=== PATIENT | male | born 1960 | race Caucasian/White ===

== ENCOUNTER 2022-12-11 13:17 | Outpatient (CLI) | payer OTHER, SELFPAY | END 2022-12-11 13:18 | disposition home or self-care (01) | PROVIDERS: PCP Internal Medicine; Visit Provider Internal Medicine | DX: E55.9 Vitamin D deficiency, unspecified (principal); Z13.6 Encounter for screening for cardiovascular disorders; Z12.5 Encounter for screening for malignant neoplasm of prostate | CPT/HCPCS: 80053; 80061; 84153 ==

== ENCOUNTER 2024-02-19 08:47 | Outpatient (CLI) | payer OTHER, SELFPAY | END 2024-02-19 08:48 | disposition home or self-care (01) | PROVIDERS: PCP Internal Medicine; Visit Provider Internal Medicine | DX: Z00.00 Encounter for general adult medical examination without abnormal findings (principal); Z12.5 Encounter for screening for malignant neoplasm of prostate | CPT/HCPCS: G0103 ==

== ENCOUNTER 2024-05-18 07:45 | Outpatient (CLI) | payer OTHER, SELFPAY ==
--- OUTSIDE RECORDS SUMMARY | 2024-05-18 07:47 | XMS_ITS | Clinical Summary ---
Author Organization [email or web address] [facility] Address [place], [place] [address] Care Team Providers Care In Process Inspector Name Role Phone Luca Macias MD Primary Care Provider Allergies No known active allergies Medications Medication Sig Dispensed Refills Start Date End Date Status valACYclovir (VALTREX) 1 gram tabletIndications:Her pes simplex labialis Take 1 tablet by mouth 2 times daily. 1 tablet 08/09/2016 Active amoxicillin-clavulana te (AUGMENTIN) 875-125 mg tabletIndications:Div erticulitis Take 1 Tablet by mouth two times daily with meals. 14 Tablet 02/01/2024 Active Active Problems Problem Noted Date Diagnosed Date Rib fractures Herpes simplex labialis Immunizations Name Administration Dates Next Due AMB Influenza, IIV4 PF (=>6 mos Flulaval,Fluzone Fluarix)(Flu Clinic Only) 04/28/2014 Influenza A (H1N1), Inactiva dorys (Age >=3 Years) 07/13/2009 Influenza, IIV3 (Age >=3 years) 04/22/2013,04/29,09/10/2010 Tdap 12/10/2009 Family History Medical History Relation Name Comments Cancer-prostate Brother 2 Arthritis Father Hypertension Mother Relation Name Status Comments Brother 1 Alive X2 Brother 2 Father Alive Maternal Grandfather Maternal Grandmother Mother Alive Paternal Grandfather Paternal Grandmother Sister Alive x2 Social History Tobacco Use Types Packs/Day Years Used Date Smoking Tobacco: Never Smokeless Tobacco: Never Alcohol Use Standard Drinks/Week Comments No 0 (1 standard drink = 0.6 oz pur e alcohol) Sex and Gender Information Value Date Recorded Sex Assigned at Not on file Gender Identity Not on file Sexual Orientation Not on file Obstetrics History Last Filed Vital Signs Vital Sign Reading Time Taken Comments Blood Pressure 118/70 01/31/2024 3:39 PM CDT Pulse 68 01/31/2024 3:39 PM CDT Temperature 36.4 ??C (97.5 ??F) 01/31/2024 3:39 PM CD T Respiratory Rate 18 01/31/2024 3:39 PM CDT Oxygen Saturation 97% 01/31/2024 3:39 PM CDT Inhaled Oxygen Concentration - - Weight 76.2 kg (167 lb 14.4 oz) 01/31/2024 3:39 PM CDT Height 177.8 cm (5' 10) 01/28/2017 3:23 PM CDT Body Mass Index 24.09 01/28/2017 3:23 PM CDT Plan of Treatment Health Maintenance Due Date Last Done Comments HIV for age 15-65 1975 Zoster (shingles) series for age 50+ (1 of 2) 2010 Depression screening for age 12+ 08/09/2017 08/09/2016 BMI (ht and wt on same day) for age 18+ 01/28/2018 01/28/2017, 08/09/2016 Colonoscopy through age 75 06/07/201906/07, 06/07/2014, 02/15/2011, Additional history exists Tetanus booster 12/11/2019 12/10/2009 Lipids for age 45-75 08/09/2021 08/09/2016, 03/30/2015, 01/18/2014, Additional history exists COVID-19 vaccine series ( season) 2024 04/04/2023, 04/17/2022, 11/21/2021, Additional history exists Influenza for age 50-64 03/01/2024 03/15/20 15 (Completed outside of [facility]), 04/28/2014, 04/22/2013, Additional history exists Tdap Completed 12/10/2009 Hepatitis C screening for age 18-79 Completed 01/18/2014 Pneumococcal series for age 6-64 Aged Out No longer eligible based on patient's age to complete this topic Procedures Procedure Name Priority Date/Time Associated Diagnosis Comments LIPID PANEL W REFLEX MEASURED LDL Routine 08/09/2016 9:43 AM COGNOS BI DEVELOPER Well adult exam COLONOSCOPY SCREENING Routine 06/07/2014 Screen for colon cancer Personal history of colonic polyps ANTI HCV Routine 01/18/2014 10:03 AM CDT Need for hepatitis C screening test from Last 3 Months or Most Recently Relevant to Health Maintenance Results * (ABNORMAL) LIPID PANEL W REFLEX MEASURED LDL (08/09/2016 9:43 AM COGNOS BI DEVELOPER) CHOLESTEROL,TOTAL 162 100 - 199 mg/dL 08/09/2016 12:19 PM COGNOS BI DEVELOPER [facility] TRIGLYCERIDES 100 <150 mg/dL 08/09/2016 12:19 PM COGNOS BI DEVELOPER [facility] HDL CHOLESTEROL 40(L) >40 mg/dL 7 12:19 PM COGNOS BI DEVELOPER [facility] NON-HDL CHOLESTEROL 122 <145 mg/dl 08/09/2016 12:19 PM COGNOS BI DEVELOPER [facility] CHOL/HDL RATIO 4.05 <4.50 08/09/2016 12:19 PM COGNOS BI DEVELOPER [facility] LDL CHOLESTEROL 102 <=130 mg/dL 08/09/2016 12:19 PM COGNOS BI DEVELOPER [facility] PATIENT STATUS FASTING 08/09/2016 12:19 PM COGNOS BI DEVELOPER [facility] Blood BLOOD SPECIMEN / Unknown Venipuncture / Unknown 08/09/2016 9:43 AM COGNOS BI DEVELOPER 08/09/2016 9:43 AM [employer] BI DEVELOPER Luca Macias MD CHEMISTRY Performing Organization Address City/[facility]/ZIP Co de Phone Number [facility] [address] [place] [address], * COLONOSCOPY SCREENING (06/07/2014) Luca Macias MD GI PROCEDURE OR D * ANTI HCV [00265.2] (01/18/2014 10:03 AM CDT) HEPATITIS C ANTIBODY Non-Reacti ve Non-Reacti ve 01/18/2014 4:22 PM CDT [facility] Blood specimen (specimen) BLOOD SPECIMEN / Unknown Venipuncture / Unknown 01/18/2014 10:03 AM CDT 01/18/2014 10:03 AM CDT Narrative [facility] - 01/18/2014 4:22 PM CDT Antibodies to HCV not detected; does not exclude the possibility of exposure to HCV. Luca Macias MD SEND OUTS [facility] [address] [place] [address], from Last 3 Months or Most Recently Relevant to Health Maintenance Care Teams In Process Inspector Relationship Specialty Start Date End Date Luca Macias MD [address] [place] [address] PCP - General Family Practice 12/07/22
--- NOTE | 2024-05-18 08:43 | W.ANESCHARGE ---
Anesthesia Charges Start Date/Time Anesthesia Start Date: 05/18/24 Anesthesia Start Time: 08:10 Stop Date/Time Anesthesia Stop Date: 05/18/24 Anesthesia Stop Time: 08:40
--- NOTE | 2024-05-18 09:14 | W.ANESCHARGE ---
Anesthesia Charges Start Date/Time Anesthesia Start Date: 05/18/24 Anesthesia Start Time: 08:10 Stop Date/Time Anesthesia Stop Date: 05/18/24 Anesthesia Stop Time: 08:40
== END 2024-05-18 07:46 | disposition home or self-care (01) ==
LOC: OP CLINIC 07:46
PROVIDERS: PCP Internal Medicine; Visit Provider Internal Medicine
DX: D12.5 Benign neoplasm of sigmoid colon (principal); K57.30 Diverticulosis of large intestine without perforation or abscess without bleeding; Z86.0100 Personal history of colon polyps, unspecified
CPT/HCPCS: 00811; 45380; 88305; J2704

== ENCOUNTER 2025-05-16 09:35 | Emergency (ER) | payer MEDICARE, BC, OTHER, SELFPAY ==
--- OUTSIDE RECORDS SUMMARY | 2025-05-16 09:38 | XMS_ITS | Clinical Summary ---
Author Organization [employer] [facility] Address [address] [place] [address] Care Team Providers Care Childcare Attendant Name Role Phone Luca Macias MD Primary Care Provider Allergies No known active allergies Medications valACYclovir (VALTREX) 1 gram tabletIndication s:Herpes simplex labialis Take 1 tablet by mouth 2 times daily. 1 tablet 08/09/2016 Active amoxicillin-clav ulanate (AUGMENTIN) 875-125 mg tabletIndication s:Diverticulitis Take 1 Tablet by mouth two times daily with meals. 14 Tablet 02/01/2024 Active Active Problems Problem Noted Date Diagnosed Date Rib fractures Herpes simplex labialis Immunizations Immunization Administration Dates Next Due AMB Influenza, IIV4 [...] drink = 0.6 oz pur e alcohol) Social Connections Answer Date Recorded Do you often feel lonely or isolated from those around you? 0 01/31/2024 Financial Resource Strain Answer Date R ecorded Difficulty of Paying Living Expenses 3 08/01/2024 Difficulty of Paying Living Expenses Not on file 08/01/2024 Food Insecurity Answer Date Recorded Do you worry your food will run out before you are able to buy more? 1 01/31/2024 Transportation Needs Answer Date Record ed Does lack of transportation keep you from medica l appointments? 1 01/31/2024 Does lack of transportation keep you from work, meetings or getting things that you need? 1 01/31/2024 Housing Stability Answer Date Recorded What is your housing situation today? 1 01/31/2024 Utilities Answer Date Recorded Do you have trouble paying f or utilities (for example, heat, electricity, water, phone)? 1 01/31/2024 Sex and Gender Information Value Date Recorded Sex Assigned at Not on file Legal Sex Male 8:00 AM BILLIARD PARLOR MANAGER Gender Identity Not on file Sexual Orientation Not on file Occupation Industry Job Start Date Job End Date Not on file Not on file Not on file Not on file Obstetrics History Last Filed Vital Signs Vital Sign Reading Time Taken Comments Blood Pressure 118/70 01/31/2024 3:39 PM CDT Pulse 68 01/31/2024 3:39 PM CDT Temperature 36.4 C (97.5 F) 01/31/2024 3:39 PM CDT Respiratory Rate 18 01/31/2024 3:39 PM CDT Oxygen Saturation 97% 01/31/2024 3:39 PM CDT Inhaled Oxygen Concentration - - Weight 76.2 kg (167 lb 14.4 oz) 01/31/2024 3:39 PM CDT Height 177.8 cm (5' 10) 01/28/2017 3:23 PM CDT Body Mass Index 24.09 01/28/2017 3:23 PM CDT Plan of Treatment Health Maintenance Due Date Last Done Comments HIV for age 15-65 1975 Pneumococcal series for age 50+ (1 of 1 - PCV) 2010 Zoster (shingles) series for age 50+ (1 of 2) 2010 Depression screening for age 12+ 08/09/2017 08/09/2016 BMI (ht and wt on same day) for age 18+ 01/28/2018 01/28/2017, 08/09/2016 Colonoscopy through age 75 06/07/201906/07, 06/07/2014, 02/15/2011, Additional history exists Tetanus booster 12/11/2019 12/10/2009 Lipids for age 45-75 08/09/2021 08/09/2016, 03/30/2015, 01/18/2014, Additional history exists Influenza Vaccine (#1) 2025 4, 04/22/2013, 04/29/2012, Additional history exists RSV vaccine for adults or (1 - 1-dose 75+ series) 2035 Hepatitis C screening for age 18-79 Completed 01/18/2014 Hepatitis B series for 19+ Aged Out N o longer eligible based on patient's age to complete this topic Procedures Procedure Name Priority Date/Time Associated Diagnosis Comments LIPID PANEL W REFLEX MEASURED LDL Routine 08/09/2016 9:43 AM BILLIARD PARLOR MANAGER Well adult exam COLONOSCOPY SCREENING Routine 06/07/2014 Screen for colon cancer Personal history of colonic polyps ANTI HCV Routine 01/18/2014 10:03 AM CDT Need for hepatitis C screening test from Last 3 Months or Most Recently Relevant to Health Maintenance Results * (ABNORMAL) LIPID PANEL W REFLEX MEASURED LDL (08/09/2016 9:43 AM BILLIARD PARLOR MANAGER) CHOLESTEROL,TOTAL 162 100 - 199 mg/dL 08/09/2016 12:19 PM BILLIARD PARLOR MANAGER [facility] TRIGLYCERIDES 100 <150 mg/dL 08/09/2016 12:19 PM BILLIARD PARLOR MANAGER [facility] HDL CHOLESTEROL 40(L) >40 mg/dL 7 12:19 PM BILLIARD PARLOR MANAGER [facility] NON-HDL CHOLESTEROL 122 <145 mg/dl 08/09/2016 12:19 PM BILLIARD PARLOR MANAGER [facility] CHOL/HDL RATIO 4.05 <4.50 08/09/2016 12:19 PM [facility] LDL CHOLESTEROL 102 <=130 mg/dL 08/09/2016 12:19 PM BILLIARD PARLOR MANAGER [facility] PATIENT STATUS FASTING 08/09/2016 12:19 PM BILLIARD PARLOR MANAGER [facility] Blood BLOOD SPECIMEN / Unknown Venipuncture / Unknown 08/09/2016 9:43 AM BILLIARD PARLOR MANAGER 08/09/2016 9:43 AM BILLIARD PARLOR MANAGER Luca Macias MD CHEMISTRY Final R esult [facility] [address] [place] [address] [facility] [address] [place] [address], [place] [phone] * COLONOSCOPY SCREENING (06/07/2014) Luca Macias MD GI PROCEDURE ORD Final Result * ANTI HCV [03900.2] (01/18/2014 10:03 AM CDT) HEPATITIS C ANTIBODY Non-Reacti ve Non-Reacti ve 01/18/2014 4:22 PM CDT [facility] Blood specimen (specimen) BLOOD SPECIMEN / Unknown Venipuncture / Unknown 01/18/2014 10:03 AM CDT 01/18/2014 10:03 AM CDT Narrative [facility] - 01/18/2014 4:22 PM CDT Antibodies to HCV not detected; does not exclude the possibility of exposure to HCV. Luca Macias MD SEND OUTS Final R esult [facility] [address] [place] [address], from Last 3 Months or Most Recently Relevant to Health Maintenance Insurance [facility] [employer] [place] [id number] Care Teams Childcare Attendant Relationship Specialty Start Date End Date Luca Macias MD [address] [place] [address] PCP - General Family Practice 12/07/22
[2025-05-16 10:08] VITALS: BP 152/92; PULSE 51; RESP 16; TEMP 36.4; O2SAT 99; BMI 25.3
--- NOTE | 2025-05-16 12:23 | CRLHL7_ITS ---
For Patients: As a result of the Century Cures Act, medical imaging exams and procedure reports are released immediately into your electronic medical record. You may view this report before your referring provider. If you have questions, please contact your health care provider. INDICATION: Low back pain. Left-sided lumbar radiculopathy. TECHNIQUE: Non-contrast axial CT of the lumbar spine with coronal and sagittal reconstructions. No comparisons. FINDINGS: The overall stature and alignment of the lumbar spine is within normal limits. No evidence of bony fragments narrowing the central canal or visualized neural foramina. L4-5: Mild broad-based posterior disc bulge with [id number] bilateral facet arthropathy results in moderate bilateral lateral recess narrowing that is most evident on the left due to a superimposed disc extrusion with caudal migration resulting in severe left lateral recess narrowing and compression of the traversing left L5 nerve root. Mild central canal narrowing. Mild bilateral foraminal narrowing. Remainder of the lumbar spine is unremarkable, specifically no evidence of suspicious high-grade central canal or foraminal narrowing. Fusion of the SI joints seen bilaterally. IMPRESSION: 1. No radiographic evidence of acute osseous injury. 2. Degenerative changes at L4-5 with a superimposed left lateral recess disc extrusion with caudal migration resulting in severe left lateral recess narrowing and compression of the traversing left L5 nerve root with mild central canal and bilateral foraminal narrowing. Please note that all CT scans at this facility use dose modulation, iterative reconstruction, and/or weight-based dosing when appropriate to reduce radiation dose to as low as reasonably achievable. Dictated by Cristino Lezama MD @ 05/16/2025 12:44:58 PM (Electronically Signed)
--- NOTE | 2025-05-16 12:26 | ED_ITS ---
HPI - Back Pain/Injury General Chief Complaint: Back Injury/Pain Stated Complaint: back pain Time Seen by Provider: 05/16/25 11:54 History of Present Illness HPI Narrative: Patient is a 64-year-old gentleman who is actually primary care patient of mine. We have been struggling with back pain with left lower extremity radiculopathy. We have done oral steroids as well as some Vicodin at home with progression of symptoms. He has tingling and pain down the left leg but no other acute abnormalities. No bowel or bladder symptoms no fevers no chills. We do an MRI scheduled form in the next week or 2 but there was a delay. His symptoms have progressed to the point where he is unable to get comfortable in any position he is in today for further evaluation. Pain is 10 of 10 sharp with radiculopathy down the left leg. Related Data Previous Rx's ?Medication ?Instructions ?Recorded amoxicillin 875 mg-potassium 1 tab PO Q12H diverticuli tis #20 04/28/25 clavulanate 125 mg tablet tabs valacyclovir 500 mg tablet 500 mg PO BID PRN cold sore s #20 04/28/25 tabs hydrocodone 5 mg-acetaminophen 325 1 tab PO Q4-6H PRN pain #30 tabs 05/13/ mg tablet Allergies Allergy/AdvReac Type Severity Reaction Status Date / Time No Known Drug Allergies Allergy Verified 05/16/25 10:13 Review of Systems Status of ROS: Reports: 10 or more systems reviewed and unremarkable except as noted in History and below [facility] Medical History Sciatica ?M54.30 - Sciatica, unspecified side (ICD-10) Screening due ?Z13.9 - Encounter for screening, unspecified (ICD-10) Calculus of kidney ?N20.0 - Calculus of kidney (ICD-10) Diverticulitis of intestine (2017) ?K57.92 - Diverticulitis of intestine, part unspecified, without perforation or abscess without bleeding (ICD-10) Renal cyst ?N28.1 - Cyst of kidney, acquired (ICD-10) History of vitamin D deficiency ?Z86.39 - Personal history of other endocrine, nutritional and metabolic disease (ICD-10) Cold sore ?B00.1 - Herpesviral vesicular dermatitis (ICD-10) Surgical History Olecranon bursitis of right elbow ?M70.21 - Olecranon bursitis, right elbow (ICD-10) Status post tonsillectomy and adenoidectomy ?Z90.89 - Acquired absence of other organs (ICD-10) Status post repair of anterior cruciate ligament ?Z98.890 - Other specified postprocedural states (ICD-10) History of colonoscopy ?Z98.890 - Other specified postprocedural states (ICD-10) Family History Mother High blood pressure Brother Prostate cancer Diverticulitis Social History What is your current living situation?: I presently have a place to live Problems where you live: no known problems In the past 12 months, utilities in danger of being shut off: no In past 12 months, lack of transportation kept you from medical appts, meetings, work, or getting things needed for daily living: no In the past 12 mos, have been you worried that your food would run out before you had money to buy more?: never true In the past 12 mos, the food you bought just didn't last and you didn't have money to buy more?: never true Smoking Status: Never smoker How often does anyone, including family, friends and others, physically hurt you : never How often does anyone, including family, friends and others, insult or talk down to you: never How often does anyone, including family, friends and others, threaten you with harm: never How often does anyone, including family, friends and others, scream or curse at you: never Exam Narrative: Exam Narrative: EXAM GENERAL: Patient appears comfortable and well. EYES: No scleral icterus. LYMPH: No supraclavicular or cervical lymphadenopathy. SKIN: Visible skin seen during exam normal or with benign process only. EXT: No dependent lower extremity pedal edema. HEART: Regular rate and rhythm with no murmurs, rubs, or gallops. LUNGS: Clear to auscultation bilaterally with no crackles or wheezes. ABD: Soft, non tender, non distended. PSYCH: Good eye contact, speech is not pressured. Neurologic cranial nerves 2-12 grossly intact no focal defects Const: Vital Signs, click to edit/add: Vital Signs - 24 hr 05/16/25 10:08 Temperature 97.6 F Pulse Rate [Pulse Oximeter] 51 L Respiratory Rate 16 Blood Pressure [Ri ght Upper Arm] 152/92 H Pulse Oximetry 99 Oxygen Delivery Me thod Room Air Course Course ED Course: Patient seen and examined. Will proceed with IV placement and IV Solu-Medrol and Toradol to start with. Will also obtain CT of the lumbar spine. Will follow up based on those results. Vital Signs Vital signs: Initial Vital Signs Temperature 97.6 F 05/16/25 10:08 Temperature Source Temporal Artery Scan 05/16/25 10:08 Pulse Rate 51 L 05/16/25 10:08 Pulse Rhythm Regular 05/16/25 10:08 Respiratory Rate 16 05/16/25 10:08 Blood Pressure 152/92 H 05/16/25 10:08 Blood Pressure Mean 112 H 05/16/25 10:08 Blood Pressure Position Sitting 05/16/25 10:08 Pulse Oximetry 99 05/16/25 10:08 Oxygen Delivery Method Room Air 05/16/25 10:08 Vital Signs Temperature 97.6 F 05/16/25 10:08 Pulse Rate 51 L 05/16/25 10:08 Respiratory Rate 16 05/16/25 10:08 Blood Pressure 152/92 H 05/16/25 10:08 Pulse Oximetry 99 05/16/25 10:08 Oxygen Delivery Method Room Air 05/16/25 10:08 Temperature 97.6 F 05/16/25 10:08 Pulse Rate 51 L 05/16/25 10:08 Respiratory Rate 16 05/16/25 10:08 Blood Pressure 152/92 H 05/16/25 10:08 Pulse Oximetry 99 05/16/25 10:08 Oxygen Delivery Method Room Air 05/16/25 10:08 Medications Administered Medications: Discontinued Medications Generic Name Dose Route Start Last Admin Trade Name Freq PRN Reason Stop Dose Admin Ketorolac Tromethamine 30 mg 05/16/25 12:23 05/16/25 12:45 Ketorolac 30 Mg/Ml Inj IVP 05/16/25 12:24 30 mg ONCE ONE Administration Methylprednisolone Sodium Succinate 40 mg 05/16/25 12:23 05/16/25 12:46 Methylprednisolone Sod Succ 40 Mg/Ml IVP 05/16/25 12:24 40 mg ONCE ONE Administration MDM - Back Pain/Injury MDM Narrative Medical decision making narrative: Patient presents with the left lower extremity radiculopathy. He has a significantly pinched L5 nerve root from an L4-L5 disc herniation. He is doing better after giving him IV Toradol and Solu-Medrol. Be discharged home he does have an MRI scheduled tomorrow. Will place him on 5 day course of prednisone as well as oxycodone as directed as well as using a stool softener. He will be in contact with me. Discharge Plan Discharge Clinical Impression: Disc herniation Patient Disposition: Home, Self-Care Condition: Stable Instructions: Sciatica (ED) Additional Instructions: Oxycodone as directed Prednisone as directed MRI tomorrow as scheduled Follow-up with Dr. Mayberry by phone on Saturday Activity Level: No Restrictions Discharge Diet: Regular Prescriptions: No Action valacyclovir 500 mg tablet 500 mg PO BID PRN (Reason: cold sores) Qty: 20 0RF Rx Instructions: take 1 tablet twice daily for three days for cold sores amoxicillin-pot clavulanate 875-125 mg tablet 1 tab PO Q12H Qty: 20 0RF hydrocodone-acetaminophen 5-325 mg tablet 1 tab PO Q4-6H PRN (Reason: pain) Qty: 30 0RF Follow Up/Referrals: Earl Mayberry MD [Primary Care Provider, Internal Medicine] Stand Alone Forms: [employer] Info Instructions
[2025-05-16 13:00] LABS: Hematocrit* 43.7 % (37.0-53.0); Hemoglobin* 13.9 gm/dL (13.5-17.5); Immature Granulocytes Abs Auto 0.01 K/uL (0.00-0.30); Immature Granulocytes Pct Auto 0.1 %; Mean Corpuscular HGB Conc 32 gm/dL (32-36); Mean Corpuscular Hemoglobin 29 pg (26-34); Mean Corpuscular Volume 90 fL (80-100); RDW Coefficient of Variation % 14.7 % (11.5-15.5); Red Blood Count* 4.88 m/uL (4.30-5.90); White Blood Count* 6.69 K/uL (4.50-11.00)
[2025-05-16 13:01] LABS: Lymphocytes Absolute Auto 0.60 K/uL (0.90-2.90); Slide Review Reflex No
[2025-05-16 13:48] LABS: Erythrocyte SedimentationRate* 5 mm/hr (2-15)
== END 2025-05-16 13:15 | disposition home or self-care (01) ==
PROVIDERS: Emergency Provider Internal Medicine; PCP Internal Medicine
DX: M51.16 Intervertebral disc disorders with radiculopathy, lumbar region (principal)
CPT/HCPCS: 36415; 72131; 85025; 85651; 96374; 96375; 99283; 99284; J1885; J2919

== ENCOUNTER 2025-05-17 12:43 | Outpatient (CLI) | payer MEDICARE, BC, SELFPAY ==
--- NOTE | 2025-05-17 13:00 | CRLHL7_ITS ---
For Patients: As a result of the Century Cures Act, medical imaging exams and procedure reports are released immediately into your electronic medical record. You may view this report before your referring provider. If you have questions, please contact your health care provider. Indication: Sciatica left leg. Technique: Multiplanar multisequence noncontrast MR images of the lumbar spine. Comparison: CT lumbar spine 05/16/2025. Findings: Transitional lumbosacral anatomy. For purposes of consistency, the transitional segment is designated L5 and demonstrates left hemisacralization. The lumbar lordosis is mildly straightened. Mild leftward lumbar curvature. Vertebral heights are maintained. No acute fracture. No T1 hypointense lesions. Normal conus terminates at L1. Two small nodules along the right cauda equina nerve roots at the L3 level measuring up to 5 mm. T12-L1 and L1-2: No spinal canal or neural foraminal narrowing. L2-3: Moderate disc degeneration. Shallow disc bulge. Minimal facet arthropathy. No spinal canal or neural foraminal narrowing. L3-4: Trace retrolisthesis. Moderate disc degeneration. Shallow disc bulge. Mild facet arthropathy. Minimal spinal canal narrowing. Atje-ty-mhzgvlhq narrowing of the lateral recesses. No neural foraminal narrowing. L4-5: Trace retrolisthesis. Moderate disc degeneration. Mild disc height loss. Minimal endplate edema. Left eccentric disc bulge with superimposed small, caudally migrated left subarticular disc extrusion measuring up to 5 mm in short axis contributing to severe left lateral recess stenosis. Qzao-jn-tlpppekf facet arthropathy. Mild spinal canal and right lateral recess narrowing. Mild bilateral neural foraminal narrowing. L5-S1: Transitional level. Mild facet arthropathy. No spinal canal or neural foraminal narrowing. Sacroiliac joint degenerative changes. Small probable bilateral renal cysts. Impression: 1. Transitional lumbosacral anatomy. For purposes of consistency, the transitional segment is designated L5 and demonstrates left hemisacralization. 2. At L4-5, caudally migrated left subarticular disc extrusion severely narrows the left lateral recess with likely impingement of traversing left L5 nerve roots. 3. Two small nodules along the right cauda equina nerve roots at the L3 level measuring up to 5 mm. Differential considerations favor schwannomas in the absence of known malignancy on this noncontrast exam. Contrast-enhanced MR images are recommended for further evaluation. Dictated by Aniceto Gay MD @ 05/18/2025 7:58:46 AM (Electronically Signed)
== END 2025-05-17 12:44 | disposition home or self-care (01) ==
LOC: MRI 12:45
PROVIDERS: PCP Internal Medicine; Visit Provider Internal Medicine
DX: M54.30 Sciatica, unspecified side (principal); M51.26 Other intervertebral disc displacement, lumbar region
CPT/HCPCS: 72148

== ENCOUNTER 2025-05-26 11:31 | Outpatient (CLI) | payer MEDICARE, BC, SELFPAY | END 2025-05-26 11:32 | disposition home or self-care (01) | LOC: INJ CL 11:32 | PROVIDERS: PCP Internal Medicine; Visit Provider Nurse Anesthetist, Certified Registered | DX: M54.16 Radiculopathy, lumbar region (principal); M51.26 Other intervertebral disc displacement, lumbar region | CPT/HCPCS: 64483; J0665; Q9966 ==

== ENCOUNTER 2025-06-16 10:34 | Outpatient (CLI) | payer MEDICARE, BC, SELFPAY | END 2025-06-16 10:35 | disposition home or self-care (01) | LOC: INJ CL 10:34 | PROVIDERS: PCP Internal Medicine; Visit Provider Nurse Anesthetist, Certified Registered | DX: M54.16 Radiculopathy, lumbar region (principal); M51.26 Other intervertebral disc displacement, lumbar region | CPT/HCPCS: 64483; J0665; J1100; Q9966 ==